=== PATIENT | female | born 1975 | race African-American/Black ===

== ENCOUNTER 2017-02-13 20:25 | Emergency (ER) | payer MEDICAID ==
[~2017-02-13] VITALS: Ht 172.7 cm; Wt 56.7 kg
[~2017-02-13 20:25] MED LIST: [UNRECOGNIZED DRUG - REMARK]
--- NOTE | 2017-02-13 20:25 | NUR ---
41Y/F BIB PD TO ED FOR PREBOOK. PER PD;PT SMOKE PCP LAST WEEK, BROUGHT PT. FOR MEDICAL CLEARANCE. PT. AAO X4, AMBULATORY WITH STEDAY GAIT. NO S/SX OF DISTRESS AT THIS TIME. ER MD MADE AWARE OF PT. STATUS.
--- NOTE | 2017-02-13 20:25 | NUR ---
PT. BIB PD TO ER OF 2
[2017-02-13 20:31] VITALS: BP 135/87
--- NOTE | 2017-02-13 21:00 | NUR ---
PATIENT BIB [employer]. PATIENT EXAMINED BY DR. AMOS. PATIENT MEDICALLY CLEARED AND RELEASED IN CUSTODY IN STABLE CONDITION. ORIGINAL PRE-BOOK FORM GIVEN TO OFFICER .
--- NOTE | 2017-02-13 21:00 | NUR ---
Patient discharged with v/s stable. Written and verbal after care instructions given and explained. Patient verbalized understanding. Ambulatory with steady gait. All questions addressed prior to discharge. Advised to follow up with PMD.
[2017-02-13 21:34] VITALS: BP 135/87
== END 2017-02-13 21:00 ==
LOC: MED 20:25
DX: Z02.89 Encounter for other administrative examinations (principal); R03.0 Elevated blood-pressure reading, without diagnosis of hypertension
CPT/HCPCS: 93005; 99283

== ENCOUNTER 2018-09-24 14:34 | Emergency (ER) | payer MEDICAID ==
[~2018-09-24] VITALS: Ht 170.2 cm; Wt 61.2 kg
[2018-09-24 14:35] VITALS: BP 125/68
--- NOTE | 2018-09-24 15:17 | NUR ---
43 YO F BIBA CARE BLS AFTER [facility] CALLED FROM [employer] [facility] AFTER PT WAS YELLING OUTSIDE. PT EVALUATED BY IRMA ANTON, NOT ON A HOLD. PT HERE FOR EVALUATION. PT YELLING AND UPSET ABOUT BEING HERE. AWARE. PT ENCOURAGED TO BE SEEN. PT HAS FAMILY ON THE WAY TO PICK HER UP. PT ABLE TO BE SETTLED INTO A BED. AAOX4. PATIENT REFUESING TO GIVE URINE AT THIS TIME.
--- NOTE | 2018-09-24 15:20 | NUR ---
PATIENT REFUESED BLOOD DRAW BY LAB
--- NOTE | 2018-09-24 15:35 | NUR ---
PT AT NURSING STATION WAVING PHONE IN NURSES FACES.
--- NOTE | 2018-09-24 15:45 | NUR ---
PATIENT CONSTANTLY ON THE PHONE TALKING TRYING TO TALK TO SOMEONE TO PICK HER UP. SHE KEEPS SAYING SHE WANTS TO GO HOME
--- NOTE | 2018-09-24 15:45 | NUR ---
PATIENT ON PHONE SCREAMING INTO THE PHONE STATING THAT SHE WANTS TO GO HOME.
--- NOTE | 2018-09-24 15:58 | NUR ---
CALLED AND SPOKE TO PATRICIA [phone] PATIENTS FRIEND, PATRICIA WILLING TO [employer] PATIENT. PATIENT INFORMED
--- NOTE | 2018-09-24 16:12 | NUR ---
PATIENT ELOPED AT THIS TIME. DR DAVIES MADE AWARE.
--- NOTE | 2018-09-24 16:16 | NUR ---
CALLED PATRICIA AND HE STATED THAT HE PICKED UP PATIENT OUTSIDE
== END 2018-09-24 16:12 | disposition left against medical advice (07) ==
LOC: MED 14:34
DX: F29 Unspecified psychosis not due to a substance or known physiological condition (principal); F20.9 Schizophrenia, unspecified; Z79.899 Other long term (current) drug therapy
CPT/HCPCS: 99283

== ENCOUNTER 2019-06-21 15:36 | Emergency (ER) | payer MEDICAID ==
[~2019-06-21] VITALS: Ht 172.7 cm; Wt 62.6 kg
[2019-06-21 15:56] VITALS: BP 139/92
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
--- NOTE | 2019-06-21 16:18 | NUR ---
PT AMBULATED TO RESTROOM TO PROVIDE URINE SAMPLE
[2019-06-21] MEDS: cefTRIAXone 1,000 MG in LIDOCAINE MPF 1% 2.1 ML IM ONE (16:54)
[2019-06-21 17:02] VITALS: BP 139/92
--- NOTE | 2019-06-21 17:02 | NUR ---
Patient discharged with v/s stable. Written and verbal after care instructions given and explained. Pt encouraged to drink plenty of fluids until urine is clear. Pt instructed to take all antibiotics as prescribed. Patient alert, oriented and verbalized understanding of instructions. Ambulatory with steady gait. All questions addressed prior to discharge. ID band removed. Patient advised to follow up with PMD. Rx of KEFLEX 500MG WAS given. Patient educated on indication of medication including possible reaction and side effects. Opportunity to ask questions provided and answered.
== END 2019-06-21 17:02 | disposition home or self-care (01) ==
LOC: MED 15:36
DX: N39.0 Urinary tract infection, site not specified (principal); F17.210 Nicotine dependence, cigarettes, uncomplicated; Z79.899 Other long term (current) drug therapy
CPT/HCPCS: 81002; 81025; 96372; 99283; J0696; J2001

== ENCOUNTER 2022-05-25 09:33 | Emergency (ER) | payer MEDICAID, OTHER ==
[~2022-05-25] VITALS: Ht 172.7 cm; Wt 68.0 kg
[2022-05-25 09:37] VITALS: BP 140/95
--- NOTE | 2022-05-25 09:43 | NUR ---
PT AMBULATED TO BED 2 WITH STEADY GAIT
--- NOTE | 2022-05-25 09:49 | NUR ---
PT AMBULATED TO BATHROOM
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
[2022-05-25 11:29] LABS: APPEARANCE,URINE SL CLOUDY (CLEAR); BILIRUBIN,URINE NEGATIVE (NEGATIVE); BLOOD, URINE 3+ (NEGATIVE); COLOR,URINE YELLOW (YELLOW); LEUKOCYTE ESTERASE ,URINE 2+ (NEGATIVE); NITRITE, URINE POSITIVE (NEGATIVE); UGLUCOSE NEGATIVE (NEGATIVE)
[2022-05-25 12:00] LABS: RBC,URINE 20-50 /HPF (0-5); TRICHOMONAS,URINE None Seen /HPF (None Seen); WBC,URINE 20-60 /HPF (0-5); YEAST,URINE None Seen /HPF (None Seen)
[2022-05-25] MEDS ORDERED: CEPH-588 PO (12:24)
[2022-05-25 12:28] VITALS: BP 142/85
[2022-05-25] MEDS ORDERED: ACETAMINOPHEN EXTRA STRENGTH 500 MG TAB PO ONE (12:30)
--- NOTE | 2022-05-25 13:08 | NUR ---
RECHECKED TEMP 100.4 ORAL, CHIDI MADE AWARE FROM 102.8, STATED PT OK TO DISCHARGE
--- NOTE | 2022-05-25 13:09 | NUR ---
Patient discharged with v/s stable. Written and verbal after care instructions ABOUT UTI given and explained. Patient alert, oriented and verbalized understanding of instructions. Ambulatory with steady gait. All questions addressed prior to discharge. ID band removed. Patient advised to follow up with PMD. Rx of KELFEX given. Patient educated on indication of medication including possible reaction and side effects. Opportunity to ask questions provided and answered.
== END 2022-05-25 13:09 | disposition home or self-care (01) ==
LOC: MED 09:33
DX: N12 Tubulo-interstitial nephritis, not specified as acute or chronic (principal); N39.0 Urinary tract infection, site not specified
CPT/HCPCS: 81001; 81025; 87086; 99283

== ENCOUNTER 2023-01-22 13:33 | Emergency (ER) | payer OTHER ==
[~2023-01-22] VITALS: Ht 172.7 cm; Wt 68.5 kg
[~2023-01-22 13:33] MED LIST changes: +CEPH-588 PO
[2023-01-22 13:38] VITALS: BP 99/63
--- NOTE | 2023-01-22 13:49 | NUR ---
PATIENT AMBULATED TO ER BED 11
[2023-01-22 14:44] LABS: APPEARANCE,URINE CLEAR (CLEAR); BILIRUBIN,URINE NEGATIVE (NEGATIVE); BLOOD, URINE 3+ (NEGATIVE); COLOR,URINE YELLOW (YELLOW); LEUKOCYTE ESTERASE ,URINE 1+ (NEGATIVE); NITRITE, URINE NEGATIVE (NEGATIVE); UGLUCOSE NEGATIVE (NEGATIVE)
[2023-01-22 14:57] LABS: RBC,URINE 20-50 /HPF (0-5)
[2023-01-22] MEDS ORDERED: CEPH-588 PO (15:18)
--- NOTE | 2023-01-22 15:18 | NUR ---
47 Y/O FEMALE BIB SELF, C/O HEMATURIA FOR 2 DAYS WITH FEVER 102F AND BODY ACHES. PT STATES SHE STARTED HAVING RIGHT FLANK PAIN TODAY . DENIES N/V/D; SKIN IS PINK/WARM/DRY; AAOX4 WITH EVEN AND STEADY GAIT; LUNGS CLEAR BL; HR EVEN AND REGULAR; PATIENT POSITIONED FOR COMFORT; HOB ELEVATED; BEDRAILS UP X2; BED DOWN. ER MD MADE AWARE OF PT STATUS. DENIES VAGINAL DISCHARGE, DYSURIA, CRAMPING. PMH: DENIES NKA
[2023-01-22 16:12] VITALS: BP 99/63
--- NOTE | 2023-01-22 16:12 | NUR ---
Patient discharged with v/s stable. Written and verbal after care instructions given and explained. Patient alert, oriented and verbalized understanding of instructions. Ambulatory with steady gait. All questions addressed prior to discharge. ID band removed. Patient advised to follow up with PMD. Rx of KEFLEX (SENT) given. Patient educated on indication of medication including possible reaction and side effects. Opportunity to ask questions provided and answered.
== END 2023-01-22 16:12 | disposition home or self-care (01) ==
LOC: MED 13:33
DX: N30.91 Cystitis, unspecified with hematuria (principal); Z86.69 Personal history of other diseases of the nervous system and sense organs; Z98.890 Other specified postprocedural states; Z79.2 Long term (current) use of antibiotics
CPT/HCPCS: 81001; 81025; 87086; 99283